=== PATIENT | female | born 1985 | race Caucasian/White ===

== ENCOUNTER 2021-11-13 08:27 | Emergency (ER) | payer MEDICAID, SELFPAY ==
[2021-11-13 08:43] VITALS: BP 117/69; PULSE 77; RESP 18; TEMP 36.8; O2SAT 99
--- NOTE | 2021-11-13 08:46 | W.ED.GENAD ---
Discharge Plan Disposition Patient Disposition: HOME Condition: Stable Discharge Details Clinical Impression: Dental infection Primary Care Provider: Divya Ochoa ED Provider: Milka Alvarez Home Meds and New Rx's Prescriptions: New penicillin V potassium 500 mg tablet 500 mg PO QID 7 Days Qty: 28 0RF Continued acetaminophen [Tylenol] 325 MG tablet 325 mg PO Q3H PRN penicillin V potassium 500 MG tablet 500 mg PO Q6H Qty: 40 0RF Discharge Instructions Instructions: Dental Abscess (ED) Additional Instructions: Your exam is concerning for recurrent dental infection. Please encourage hydration. Please take the penicillin as prescribed. Even if symptoms improve, please take the entire course. Please call a local dentist as you will need continued and definitive care with them. A list is attached of our local dental options. You may use Tylenol and/or ibuprofen as needed for discomfort. If you develop fever/chills, increased swelling or other new/worsening symptom please seek care urgently once again. Referrals: Divya Ochoa MD [Primary Care Provider] - Discharge Data Discharge Date/Time-TO BE ENTERED AT DEPARTURE: 11/13/21 10:06 Medical Decision Making Patient is a pleasant 36-year-old female presenting today with chief complaint of left upper dental pain. Patient reports that she has had difficulty with poor dentition for several years, associates with previous trauma. Has had intermittent infections, states that she was last on antibiotics about 6 months ago for this. Is currently trying to find a local dentist. She denies any fevers or chills. No radiation of pain. Woke up this morning noting some swelling on the left side. On exam, patient appears nontoxic. She does have some mild swelling to the left side of her face, more on the lower aspect although the pain is along the upper dentition. Patient has poor dentition generally, most of her teeth are shortened ground nubbins. Pain is maximally elicited over the anterior aspect of the teeth where #9 2 through 12 would be. No appreciable swelling, fluctuance to suggest abscess. No swelling under the tongue. Posterior oropharynx is clear with no swelling. Concern for recurrent dental infection. Not see evidence of abscess at this time. She has responded well to penicillin VK historically, will start her on a dose of this now. Advised Tylenol and ibuprofen as needed for discomfort. Encourage hydration. We will give list of local dentist encourage close dental follow-up. Return precautions were discussed. All the questions or concerns were addressed and she is in agreement this plan. HPI General Date/Time Provider Initiated Documentation: 11/13/21 08:46. Limitations to Documentation: no limitations. Information obtained by: patient, family, RN notes reviewed and old records reviewed. History of Present Illness 36 year old F presents to the emergency department with the chief complaint of left sided dental pain and facial swelling, described as moderate and similar to prior episodes, Quality is described as aching, and is localized to the mouth. Patient reports no radiation. Patient started experiencing this day(s) and it has been constant. No relieving factors improve symptom(s), No exacerbating factors reported . Patient notes denies cough, fever/chills and loss of appetite. Patient did receive the following treatments prior to arrival, none Related Data Home Medications Medication Instructions Recorded Confirmed acetaminophen 325 mg tablet 325 mg PO Q3H PRN 06/29/13 11/13/21 (Tylenol) penicillin V potassium 500 mg 500 mg PO Q6H ##40 05/29/17 tablet penicillin V potassium 500 mg 500 mg PO QID 7 days #28 tabs 11/13/21 tablet Previous Rx's Medication Instructions Recorded penicillin V potassium 500 mg 500 mg PO Q6H ##40 18 tablet penicillin V potassium 500 mg 500 mg PO QID 7 days #28 tabs 11/13/21 tablet Allergies Allergy/AdvReac Type Severity Reaction Status Date / Time codeine Allergy Severe FACE AND Verified 11/13/21 08:45 THROAT SWELL hydromorphone HCl Allergy Intermediate HIVES/RASH Verified 11/13/21 08:45 [From Dilaudid] General Stated Complaint: DentalOral ANAI: 4 Review of Systems Constitutional Constitutional: Reports as per HPI and Denies fever(s) Eyes Eyes: Denies change in vision and Denies irritation ENT Ears, Nose, Mouth, and Throat: Reports as per HPI, Reports dental pain, Denies dysphagia, Denies ear discharge, Denies otalgia, Reports facial pain, Denies hoarseness, Denies nasal congestion, Denies odynophagia and Denies sore throat Cardiovascular Cardiovascular: Reports as per HPI and Denies chest pain Respiratory Respiratory: Reports as per HPI and Denies cough Gastrointestinal Gastrointestinal: Reports as per HPI, Denies dysphagia, Denies nausea and Denies odynophagia Integumentary/Breasts Skin/Breast: Reports as per HPI, Denies erythema and Denies rash Neurologic Neurologic: Reports as per HPI PFSH All Active Problems (Updated 11/13/21 @ 09:06 by JAYASHREE Souza) Dental infection (Acute) Social History Smoking/Tobacco Use Status: Current every day Tobacco Type: cigarettes Smoking risk assessment performed?: Yes Alcohol Intake: current Alcohol Intake frequency: holidays/special occasions only Drug use: Never Substance use type: does not use Do you feel safe at home: Yes Do you feel safe in your relationship?: Yes Exam Const General: cooperative, healthy appearing, comfortable, no acute distress, well developed and well groomed Nutritional Appearance: average body habitus and well nourished Orientation: alert and awake [facility] Head: normal to inspection, normocephalic and atraumatic Ears: hearing grossly normal bilaterally, external ears normal and TM's normal bilaterally General nose exam: external nose normal and nares normal Face and sinus: sinuses nontender, face asymmetric (left side of facie is slightly swollen), no erythema, no fluctuance and tenderness Mouth: oral mucosae normal, lip normal, tongue normal, moist mucous membranes, No mouth trauma, No abnormal TMJ, no trismus and No restricted motion Teeth and gingiva: gingiva abnormal tender (left upper buccal side) and poor dentition Throat: posterior oropharynx normal, tonsils normal and uvula midline Eyes General: appearance normal, both eyes and all related structures Neck Neck: normal visual inspection, full ROM, no lymphadenopathy, supple and no anterior neck swelling Resp Effort & Inspection: normal respiratory effort, able to speak in complete sentences and no respiratory distress Auscultation: clear to auscultation bilaterally, no rales, no rhonchi and no wheezes Cardio Rate: regular rate Rhythm: regular rhythm Heart Sounds: S1 normal and S2 normal Skin General skin exam: no rashes or lesions noted Trauma: no lacerations or abrasions Neuro General: patient alert and patient awake Cognition: normal cognition Speech: speech normal Gait: normal gait Psych Appearance: grossly normal and well kempt Mental Status: mental status grossly normal Speech and Movement: speech and movement normal Course Vital Signs Vital signs: Vital Signs Temperature 36.8 C 11/13/21 08:43 Pulse 77 11/13/21 08:43 Respiratory Rate 18 11/13/21 08:43 Blood Pressure 117/69 11/13/21 08:43 Pulse Oximetry 99 11/13/21 08:43 Temperature 36.8 C 11/13/21 08:43 Temperature Source Temporal Artery Scan 11/13/21 08:43 Pulse 77 11/13/21 08:43 Respiratory Rate 18 11/13/21 08:43 Blood Pressure 117/69 11/13/21 08:43 Blood Pressure Position Sitting 11/13/21 08:43 Pulse Oximetry 99 11/13/21 08:43 Oxygen Delivery Method Room Air 11/13/21 08:43 Oxygen Flow Rate 0 11/13/21 08:43
[2021-11-13] MEDS: Penicillin V POTASSIUM 500 MG TAB PO (09:09)
== END 2021-11-13 10:06 | disposition home or self-care (01) ==
PROVIDERS: Emergency Provider Physician Assistant; PCP Family Medicine
DX: K04.7 Periapical abscess without sinus (principal); F17.210 Nicotine dependence, cigarettes, uncomplicated
CPT/HCPCS: 99283; 99284

== ENCOUNTER 2024-05-27 13:39 | Outpatient (REF) | payer MEDICAID, SELFPAY ==
--- NOTE | 2024-05-27 13:20 | PAPFT_PTH ---
PATIENT: Dacia Deluca LOC: [facility] U#:[id number] AGE/SX: 39/F ROOM: RE05/27/[address]: Tisha Mcdaniel NP : 1985 BED: DIS: 05/27/2024 SPEC #: [id number] RECD: 05/27/24 16:55 STATUS: MARIBEL REPhoebe #: [id number] REINALDO: 05/27/24 13:[address]: Tisha Mcdaniel NP DEPT: [facility] Cytology RECD BY: Daily Medrano ENTERED: 05/27/24 16:55 SP TYPE: PAPFT OTHR DR: Divya Ochoa Tissues: 1 - CX/ENDOCX FOR PAP SMEARS Procedures: PAP THIN PREP/[facility] Screening HPV DNA PROBE Comments: [id number] (HPV 16 & 18/45)
== END 2024-05-27 13:40 | disposition home or self-care (01) ==
LOC: LBN 13:39
PROVIDERS: PCP Family Medicine; Visit Provider Nurse Practitioner Women's Health
DX: Z12.4 Encounter for screening for malignant neoplasm of cervix (principal); R87.619 Unspecified abnormal cytological findings in specimens from cervix uteri
CPT/HCPCS: 88142; 87624